=== PATIENT | female | born 1940 | race Caucasian/White ===

== ENCOUNTER 2018-02-12 11:28 | Emergency (ER) | payer OTHER, BC ==
[~2018-02-12] VITALS: Ht 160 cm; Wt 84.0 kg
[~2018-02-12 11:28] MED LIST: ALDACTAZIDE 251 EACH PO; Aldactazide 25/25 PO; Aspirin Chewable PO; Atarax,Vistaril PO; BAYER CHEWABLE81 MG PO; CINNAMON500 MG PO; Calcium/Magnesiun/Zi PO; Cinnamon Bark PO; LIPITOR20 MG PO; LOTREL 5/101 CAPSULE PO; Lotrel 5/40 PO; PREMARIN0.3 MG PO; Percocet 5/325,Endoc PO; Vitamin B Complex PO; Vitamin D PO; Zocor PO; Zoloft PO
[2018-02-12 14:50] VITALS: BP 121/70
== END 2018-02-12 14:52 | disposition home or self-care (01) ==
LOC: EME 11:28
PROC: 0HQ0XZZ Repair Scalp Skin, External Approach (ICD-10-PCS; principal; 2018-02-12)
DX: S01.01XA Laceration without foreign body of scalp, initial encounter (principal); W01.0XXA Fall on same level from slipping, tripping and stumbling without subsequent striking against object, initial encounter; Y92.008 Other place in unspecified non-institutional (private) residence as the place of occurrence of the external cause; I10 Essential (primary) hypertension; K21.9 Gastro-esophageal reflux disease without esophagitis; F32.9 Major depressive disorder, single episode, unspecified; Z90.49 Acquired absence of other specified parts of digestive tract
CPT/HCPCS: 70450; 99281; 99284